=== PATIENT | male | born 2000 | race Caucasian/White ===

== ENCOUNTER 2021-01-27 16:36 | Emergency (ER) | payer BC ==
[~2021-01-27] VITALS: Ht 180.3 cm; Wt 104.5 kg
[2021-01-27 16:38] VITALS: TEMP 98.5
[2021-01-27 17:22] VITALS: BP 131/86; PULSE 86
== END 2021-01-27 17:35 | disposition home or self-care (01) ==
LOC: COL.ER 16:36 → EDBD 16:37 → COL.ER 17:35
DX: S83.005A Unspecified dislocation of left patella, initial encounter (principal); X50.9XXA Other and unspecified overexertion or strenuous movements or postures, initial encounter; Y93.68 Activity, volleyball (beach) (court)
CPT/HCPCS: L1846